=== PATIENT | male | born 1950 | race Caucasian/White ===

== ENCOUNTER 2017-11-30 02:40 | Emergency (ER) | payer OTHER ==
[~2017-11-30] VITALS: Ht 180.3 cm; Wt 86.2 kg
[2017-11-30] MEDS ORDERED: CARVEDILOL12.5 MG PO (02:48)
[2017-11-30] MEDS ORDERED: FLOMAX0.4 MG PO (05:37)
[2017-11-30] MEDS ORDERED: PERCOCET 5-3251 EACH PO (05:37)
== END 2017-11-30 06:24 | disposition home or self-care (01) ==
LOC: ED 02:40
DX: N13.2 Hydronephrosis with renal and ureteral calculous obstruction (principal); I10 Essential (primary) hypertension; Z79.899 Other long term (current) drug therapy
CPT/HCPCS: 36415; 74176; 80053; 81001; 85025; 99284; J7030